=== PATIENT | female | born 1995 | race Caucasian/White ===

== ENCOUNTER 2024-08-19 09:55 | Outpatient (REF) | payer OTHER, SELFPAY ==
--- NOTE | ~2024-08-19 | US_ITS ---
EXAMINATION: US PELVIS CLINICAL INFORMATION: Irregular menses. COMPARISON: None available. TECHNIQUE: Ultrasound of the pelvis is performed using both transabdominal and transvaginal transducers along with Doppler. Transvaginal imaging is performed due to inadequate visualization transabdominally. FINDINGS: Uterus: The uterus is in anteversion flexion and measures 7 x 3 x 3 cm. Volume: 37 cc. The double wall endometrial thickness is 2 mm. The uterus is smooth in contour and has normal myometrial echogenicity. No visible fibroid. Adnexa: Both ovaries are visualized. There is normal color flow to the adnexa. There is no ovarian torsion. There is no pelvic ascites or fluid collection. Right ovary measures 3 x 2 x 2 cm. Volume: 4 cc. Left ovary measures 4 x 3 x 2 cm. Volume: 7 cc. US/US pelvic and transvaginal IMPRESSION: Normal pelvic ultrasound. Electronically signed by: Brando Titus MD 08/19/2024 01:00 PM EDT
--- OUTSIDE RECORDS SUMMARY | 2024-08-19 10:44 | XMS_ITS | Patient Health Record ---
Author Organization [facility] Address [address] [place] [address] Care Team Providers Care Histological Illustrator Name Role Phone KALI LANG Primary Care Provider Dayna Chappell Unavailable [phone] Allergies Allergen (clinical drug ingredient) Drug/Non Drug Allergy documented on EMR Reaction Allergy Type Onset Date Status amoxicillin AMOXICILLIN (uncoded) hives Allergy Active Doxycycline Calcium Unknown Drug Allergy Active Reason For Referral No Information Medications Medication SIG (Take, Route, Fr equency, Duration) Notes Start Date End Date Status Orsythia 0.1-20 MG-MCG 1 tablet Orally Once a day Active Social History Alcohol Screen (Audit-C) Question Answer Notes Did you have a drink containing alcohol in the p ast year? No Points 0 Interpretation Negative Problems Problem Type SNOMED Code ICD Code Onset Dates Problem Status W/U Status Risk Notes Problem Dysmenorrhea (731892947) Dysmenorrhea (625.3) Active confirmed Problem Excessive or frequent menstruation (626.2) Active confirmed Problem Abnormal vaginal bleeding (253256531) Other specified abnormal uterine and vaginal bleeding (N93.8) Active confirmed Plan Of Treatment Pending Test Test Name Order Date ONE SWAB 01/21/2016 ANTI-HEPATITIS C 01/21/2016 CHLAMYDIA GC AMP PROBE 09/26/2016 GC/ chl by urine aptima 07/21/2014 SYPHILIS TESTING 01/21/2016 HIV AB-AG 4TH GENERATION 01/21/2016 Insurance Providers Payer Name Payer Address Payer Phone Subscriber Number Group Number Insured Name Patient Relationship to Insured Coverage Start Date Coverage End Date [facility] [employer] [address] [place], [place] [id number] Child - Insured has Financial Responsibility Medical (General) History Medical History History ICD Code R bundle branch block Anxiety Dysmenorrhea, unspecified N94.6 Excessive and frequent menstruation with regular cycle N92.0 Dysuria R30.0 Other constipation K59.09
--- OUTSIDE RECORDS SUMMARY | 2024-08-19 10:44 | XMS_ITS | Clinical Summary ---
Author Organization [facility] Address [address] [place] [address] Care Team Providers Care Assistant Child Care Teacher Name Role Phone Unknown, Primary Care Provider Unavailabl e Social History Tobacco Use Types Packs/Day Years Used Date Smoking Tobacco: Never Assessed Sex and Gender Information Value Date Recorded Sex Assigned at Not on file Gender Identity Not on file Sexual Orientation Not on file Job Start Date Occupation Industry Not on file Not on file Not on file Plan of Treatment Health Maintenance Due Date Last Done Comments Hepatitis B Vaccines (1 of 3 - 3-dose series) 1997 Hepatitis C Screening 1997 COVID-19 Vaccine (#1) 1997 Depression Screening 2009 Preventative Health Evaluation 06/01/2015 DTap / Tdap / Td (1 - Tdap) 2016 Cervical Cancer Screening (P ap Smear) 2018 Influenza Vaccine (#1) 2024 12/27/2015 Pneumococcal Vaccine Aged Out No long er eligible based on patient's age to complete this topic RSV Ped < 20 months Aged Out No longe r eligible based on patient's age to complete this topic Care Teams Assistant Child Care Teacher Relationship Specialty Start Date End Date Unknown, PCP - General 01/09/23
--- OUTSIDE RECORDS SUMMARY | 2024-08-19 10:45 | XMS_ITS | Data Portability ---
Author Organization [place] [facility] Rod[facility]ONE [place] Address [address] [place] [address] Assessment Encounter Date Assessment Date Assessment LastModified by Organization Details LastModified Time 04/29/2024 04/29/2024 Status post acut e left knee injury. Physical examination concerning for an ACL tear, cannot exclude a medial meniscus tear. I suggest she continue with physical therapy. I recommend an MRI for further evaluation and she is in agreement. I will see her back to go over the results. In the interim she will curtail any high demand athletic activities. Questions invited and answered. Greater than 20 minutes was spent with the encounter today, including face to face time with the patient, documentation, review of records/imaging if applicable, and coordination of care. PRIOR PEDRITO: The patients history and physical examination are consistant with an acute ACL tear of the Left knee. Xrays were reviewed together on the computer. No fracture. We talked about the function of the ACL and the symptoms that occur when it is torn most notably instability. We talked about the possibility of having an increased risk of arthritis due to this instability. We talked about the treatment options including physical therapy,bracing and surgery. We discussed the role of advanced imaging. Imaging is best done when the swelling has decreased. Surgery is not urgent and best after some physical therapy and swelling has decreased. After discussion, we agreed to activity modification, brace, physical therapy and follow-up in 2 weeks. At that time an MRI can be considered based on the exam and improvement.. Not available 05/05/2024 10:46:44 05/19/2024 05/19/2024 I went over my findings with her. Unfortunately the MRI does confirm a complete rupture of her ACL which is consistent with her exam. She also has a peripheral medial meniscus tear, possibly a ramp lesion. We reviewed the natural history of ACL tears. We discussed relevant anatomy and the function of the ACL. The patient was educated that ACL tears do not heal on there own. The ACL is important for knee stability, primarily for cutting pivoting and agility activities. We discussed that recurrent instability episodes may preclude a return to athletic activities, and more importantly, place the knee at risk for additional and future injuries to the articular cartilage, menisci, and other structures. We reviewed treatment options. This included a ruchi discussion regarding non-operative treatment with activity modification, therapy, HEP, and possible brace wear. We also discussed surgical intervention - an ACL reconstruction. We reviewed the nature of the surgery as well as the anticipated recovery time. We discussed graft choices and their implications based upon the available literature. Additional pathology present at the time of surgery would be addressed accordingly. We discussed the results and outcomes following ACL reconstruction - that 75%-80% of patients can be expected to return to their previous level of activity following surgery. There is a risk of graft failure and a 5-10% chance of residual graft laxity that may compromise function. Additional risks of surgery were reviewed. We discussed and reviewed the natural history of meniscus tears. We reviewed the function and anatomy of the meniscus. The menisci are fibrocartilaginous wedge-shaped structures that play many roles in the knee, including transmitting axial loads across the tibiofemoral articulation, increasing joint congruency, contact area and stability, decreasing contact pressures, and contributing to shock absorption, lubrication, and joint proprioception. The essential function of the meniscus in dissipating forces across the joint is enabled by a longitudinal orientation of circumferential collagen fibers which convert compressive forces to circumferential hoop stresses. (Fanny ALEXANDRE) Meniscus tears are common and may or may not be symptomatic. We discussed that clinical symptoms tend to be more important than radiographic findings. We reviewed treatment options. Many meniscus tears can be treated non-surgically and symptoms may respond to a program of activity modification, home exercise/physical therapy, oral medications, bracing, and/or injections. PRP injections may be considered. Surgical intervention with an arthroscopic partial meniscectomy vs repair is considered for persistent symptoms. The majority of meniscal tears are not repairable. It is her desire to remain active. Given this as well as the medial meniscus tear she is a candidate to consider an ACL reconstruction with medial meniscus repair. I went over the nature of the surgery with her as well as the anticipated recovery time. Unfortunately she is fairly well versed with this having undergone prior ACL reconstruction on the contralateral side. Left knee arthroscopy, ACL reconstruction with BTB autograft, medial meniscus repair (90%) vs partial medial meniscectomy. Should she wish to proceed she will be in touch with the surgical aides teacher. We will work out a mutually convenient time. In the interim she can wean to a home exercise program as her range of motion has come back nicely. Greater than 30 minutes was spent with the encounter today, including face to face time with the patient, documentation, review of records/imaging if applicable, and coordination of care. PRIOR: Status post acute left knee injury. Physical examination concerning for an ACL tear, cannot exclude a medial meniscus tear. I suggest she continue with physical therapy. I recommend an MRI for further evaluation and she is in agreement. I will see her back to go over the results. In the interim she will curtail any high demand athletic activities. PRIOR PEDRITO: The patients history and physical examination are consistant with an acute ACL tear of the Left knee. Xrays were reviewed together on the computer. No fracture. We talked about the function of the ACL and the symptoms that occur when it is torn most notably instability. We talked about the possibility of having an increased risk of arthritis due to this instability. We talked about the treatment options including physical therapy,bracing and surgery. We discussed the role of advanced imaging. Imaging is best done when the swelling has decreased. Surgery is not urgent and best after some physical therapy and swelling has decreased. After discussion, we agreed to activity modification, brace, physical therapy and follow-up in 2 weeks. At that time an MRI can be considered based on the exam and improvement.. Not available 05/19/2024 17:10:39 06/23/2024 06/23/2024 She continues to experience intermittent instability and limitations with the left knee. She would like to move forward with surgery for the left knee. PLANNED PROCEDURE : Left knee arthroscopy, ACL reconstruction with BTB autograft, medial meniscus repair (90%) vs partial medial meniscectomy. I discussed the diagnosis at length with the patient today. We went over the nature of the injury/injuries using diagrams and a model of the knee to help them understand the problem(s). Given the patients desire to continue with aggressive activities, including cutting and pivoting, I recommend ACL reconstruction. Alternatives to surgery, such as activity modification, were presented and discussed. Graft options were discussed, including both autograft and allograft tissues. We further discussed graft choices such as hamstring and ygty-wehlbpeb-meto grafts from the ipsilateral knee. I described my preference for autograft tissues and the patient was given information on all graft options. As a result of this discussion the patient has chosen to use autograft patellar tendon for their surgery. They understand that if their tissue proves insufficient for any reason, an allograft for reconstruction/augme ntation may be necessary and they have provided consent for that today I marked the patient s knee with the proposed incisions. We discussed the possibility of hypertrophic scar formation. We discussed that there may be bandar-incisional paresthesia which may be permanent. We discussed that occasionally hardware used for graft fixation can be prominent on the front of the knee and require removal at a later time. I described other potential abnormalities within the knee that could be discovered at the time of surgery, such as meniscus tears, articular cartilage injury, or collateral ligament injury. The patient has given consent to treat these additional problems at the time of surgery as is appropriate. We discussed the implications of these treatments, in particular meniscus repair and microfracture, as the normal rehabilitation course following surgery may be altered. We discussed the possibility of an inside out meniscal repair. Results of ACL reconstruction were discussed. There is a recurrent injury rate of 2 to 5%. Up to 10% of reconstructions may have residual laxity that may or may not impact function. With acute ACL injuries,70-80% of patients generally return to their previous level of function. With chronic ACL injuries, the return to activity is lower, reaching only 50-60% of normal. Informed consent was obtained today. The patient clearly understands the information presented and is capable of making decisions voluntarily. They demonstrated a clear understanding of the problem and the risks and benefits of treatment. The discussion included a description of the proposed treatment, including the purpose, duration, methods and implements used, as well as the probability of success. We discussed all material risks of the procedure, as well as the possibility of unforeseen or unanticipated risks. The material risks include, but are not limited to infection, bleeding, injury to blood vessels and/or nerves, scarring, stiffness, no change in symptoms, need for further surgery, blood clots, stroke, and . The discussion further included reasonable alternatives and the risks of not being treated. Post-op pain medications were reviewed, side effects discussed. Icing protocol reviewed. Physical therapy to start per protocol. Post-op appointment confirmed. Patient was prescribed a T- scope for the above diagnosis. The patient is ambulatory but has weakness and/or instability of their left knee which requires stabilization from this semi-rigid / rigid orthosis to improve their function. I have recommended the patient use a cold/compression unit post-operatively to reduce swelling, improve pain, and reduce the use of oral narcotic pain medications. The patient has been instructed on the use of the machine. The cuff will always be applied with the skin protected. PRIOR: I went over my findings with her. Unfortunately the MRI does confirm a complete rupture of her ACL which is consistent with her exam. She also has a peripheral medial meniscus tear, possibly a ramp lesion. It is her desire to remain active. Given this as well as the medial meniscus tear she is a candidate to consider an ACL reconstruction with medial meniscus repair. I went over the nature of the surgery with her as well as the anticipated recovery time. Unfortunately she is fairly well versed with this having undergone prior ACL reconstruction on the contralateral side. Left knee arthroscopy, ACL reconstruction with BTB autograft, medial meniscus repair (90%) vs partial medial meniscectomy. Should she wish to proceed she will be in touch with the surgical aides teacher. We will work out a mutually convenient time. In the interim she can wean to a home exercise program as her range of motion has come back nicely. PRIOR: Status post acute left knee injury. Physical examination concerning for an ACL tear, cannot exclude a medial meniscus tear. I suggest she continue with physical therapy. I recommend an MRI for further evaluation and she is in agreement. I will see her back to go over the results. In the interim she will curtail any high demand athletic activities. PRIOR PEDRITO: The patients history and physical examination are consistant with an acute ACL tear of the Left knee. Xrays were reviewed together on the computer. No fracture. We talked about the function of the ACL and the symptoms that occur when it is torn most notably instability. We talked about the possibility of having an increased risk of arthritis due to this instability. We talked about the treatment options including physical therapy,bracing and surgery. We discussed the role of advanced imaging. Imaging is best done when the swelling has decreased. Surgery is not urgent and best after some physical therapy and swelling has decreased. After discussion, we agreed to activity modification, brace, physical therapy and follow-up in 2 weeks. At that time an MRI can be considered based on the exam and improvement.. Not available 06/23/2024 16:48:29 07/11/2024 07/11/2024 I reviewed my findings with the patient today. We reviewed the operative findings. Questions were invited and answered. Overall she is doing very well. Her swelling is minimal. She will continue therapy on the outlined protocol. We reviewed the meniscus repair precautions. We will plan on having her be 25 to 50% partial weightbearing for 4-6 weeks before she weans out of the brace and discontinues use of crutches. First 4 weeks she will limit flexion to no more than 90 degrees. Routine incision care reviewed. Medications reviewed. Side effects discussed. Precautions reviewed. DME adjusted as appropriate. Her T scope brace was noted to be well-fitting. ACL + Meniscus Recovery outline: Start PT 5-7 days after surgery. Cruthces with brace locked in extension for ambulation for four weeks, 25%-50% WB . May use a knee sleeve thereafter. Icing per protocol. 15-20 minutes on affected area with skin protected. May repeat hourly as needed. Alternatively may use cryomachine with skin precautions. Keep incisions dry until sutures removed. No swimming or submerging incisions for three weeks after surgery. Encourage extension exercises. Goal to regain full ROM by 6 weeks. Recommend functional rehabilitation with an ATC or the like around 5 months post-op. General return to unrestricted sporting activities is 9-12 months following surgery but could be longer if functional goals are not met. Rehab from ACL surgery is a team effort and requires active participation by the patient/family. This includes a commitment to attend scheduled therapy sessions and comply with post-operative treatment recommendations. Failure to adhere to the rehab protocol may compromise the patient s outcome. The patient/family understands there may be a financial commitment above and beyond what standard insurance may pay for with regards to rehabilitation, especially when the goal is to return to high level sporting activities. Not available 07/14/2024 08:24:24 07/31/2024 07/31/2024 She's making fei jaqueline progress. We reviewed the postoperative protocol. She can begin to progress weight-bearing as tolerated. She will continue PT along the protocol. Follow up in four weeks. PRIOR SAB: I reviewed my findings with the patient today. We reviewed the operative findings. Questions were invited and answered. Overall she is doing very well. Her swelling is minimal. She will continue therapy on the outlined protocol. We reviewed the meniscus repair precautions. We will plan on having her be 25 to 50% partial weightbearing for 4-6 weeks before she weans out of the brace and discontinues use of crutches. First 4 weeks she will limit flexion to no more than 90 degrees. Routine incision care reviewed. Medications reviewed. Side effects discussed. Precautions reviewed. DME adjusted as appropriate. Her T scope brace was noted to be well-fitting. ACL + Meniscus Recovery outline: Start PT 5-7 days after surgery. Cruthces with brace locked in extension for ambulation for four weeks, 25%-50% WB then progress to full weightbearing until 6 weeks. May use a knee sleeve thereafter. Icing per protocol. 15-20 minutes on affected area with skin protected. May repeat hourly as needed. Alternatively may use cryomachine with skin precautions. Keep incisions dry until sutures removed. No swimming or submerging incisions for three weeks after surgery. Encourage extension exercises. Goal to regain full ROM by 6 weeks. Recommend functional rehabilitation with an ATC or the like around 5 months post-op. General return to unrestricted sporting activities is 9-12 months following surgery but could be longer if functional goals are not met. Not available 08/05/2024 22:02:47 Plan of Treatment Reminders Order Date Submit Date Provider Last Modified By Organization Details Last Modified Time Details Appointments POST-OP 2024 02:45P Patty Huston MD Not available Not available Not available Lab None recorded. Referral None recorded. Procedures None recorded. Surgeries knee arthrosco py (SURG) 2024 025 ROLA Not available 07/02/2024 15:39:04 Imaging XR, knee, 1 or 2 view 2024 025 [email or web address] [facility], [address], [place], [address], 07/11/2024 16:56:44 MRI, knee, w/o contrast 2024 025 ROLA Not available 05/06/2024 10:33:49 Medication Orders None recorded. Patient TargetsNo targets recorded. Patient Instructions Encounter Date Encounter Id Patient Instructions Last Modified By Organization Details Last Modified Time 04/29/2024 [id number] Radiographs: 3 views of the Left knee were obtained in the [place] office on 04/14/2024 including AP, lateral (weightbearing), and sunrise. X-rays demonstrated normal bony mineralization. Joint spaces well-maintained. No evidence of fracture. Findings: No fracture X-ray interpretation by: JOSE JUAN Moss Not available 04/28/2024 12:54:25 05/19/2024 [id number] Radiographs: 3 views of the Left knee were obtained in the [place] office on 04/14/2024 including AP, lateral (weightbearing), and sunrise. X-rays demonstrated normal bony mineralization. Joint spaces well-maintained. No evidence of fracture. Findings: No fracture X-ray interpretation by: JOSE JUAN Moss Not available 05/19/2024 08:13:04 06/23/2024 [id number] Radiographs: 3 views of the Left knee were obtained in the [place] office on 04/14/2024 including AP, lateral (weightbearing), and sunrise. X-rays demonstrated normal bony mineralization. Joint spaces well-maintained. No evidence of fracture. Findings: No fracture X-ray interpretation by: JOSE JUAN Moss Not available 06/23/2024 08:28:21 07/11/2024 [id number] [facility] Physical Therapy Script ACL & Meniscus Repair morgan Not available 07/11/2024 15:47:21 2 views of the left knee were obtained on 07/11/2024 in the [place] office. Joint space well-maintained. Evidence of ACL reconstruction, tunnel position appears appropriate. Hardware appears intact. No acute fracture appreciated. Findings: Findings consistent with recent ACL reconstruction, no acute complication appreciated. Interpreted by: MD morgan Sykes Not available 07/14/2024 08:23:22 07/31/2024 [id number] 2 views of the left knee were obtained on 07/11/2024 in the [place] office. Joint space well-maintained. Evidence of ACL reconstruction, tunnel position appears appropriate. Hardware appears intact. No acute fracture appreciated. Findings: Findings consistent with recent ACL reconstruction, no acute complication appreciated. Interpreted by: Torsten Huston MD Not available 08/05/2024 21:58:10 Reason for Referral None Reported. Results Created Date Observation Date Name Description Value Unit Range Abnormal Flag Note LastModifiedBy Organization Detail LastModifiedTime 05/07/19 25 05/06/2024 MRI, knee, w/o contr ast No observ ation record ed. [email or web address] [facility] [address], [place], [address], 05/06/2024 10:38:26 Result Notes None recorded. Problems Name Problem SNOMED Code Status Onset Date Resolution Date Notes Provider Name and Address Organization Details Recorded Time Pain of right knee joint 494677698433986 Active 2022 FATMATA SALMERON PA-C [address], [place], [address], [place] [facility] 3 13:12:18 Rupture of anterior cruciate ligament 236403429 Active [address], [place], [address], [place] [facility], [facility] 3 11:37:21 Acute tear of lateral meniscus of right knee 183200197291422 00 Active [address], [place], [address], [place] [facility], [facility] 3 11:40:39 Tear of medial meniscus of knee 807854218 Active 2023 JOSIE BHANDARI PA-C [address], [place], [address], [place] [facility], [facility] 4 10:22:02 Rupture of anterior cruciate ligament of left knee 708259429825606 06 Active 2024 Torsten Huston MD [address], [place], [address], [place] [facility], [facility] 5 08:28:19 Pain of left knee region 471341034331120 Active 2024 Torsten Huston MD [address], [place], [address], [place] [facility], P 5 12:54:24 Tear of medial meniscus of knee 317548181 Active 2024 Torsten Huston MD [address], [place], [address], [place] - [facility], P 5 15:24:20 Problem Notes None recorded. Procedures Surgical History Date Name Laterality Status Provider Name and Address Organization Details Recorded Time 07/03/19 25 KNEE ARTHROSCOPY (SURG) completed Yesenia Adler [facility], P 07/02/2024 15:39:09 Knee Surgery completed Sammie Hammond [facility], P 04/14/2024 15:31:36 Imaging Results None recorded. Procedure Notes None recorded. Medical Equipment None Reported. Allergies Allergen ID Allergen Name Allergen Category Reaction Reaction Severity Criticality Documentation Date Start Date Code Code System Note Provider Name and Address Organization Details Recorded Time 31761 doxycycli ne Not available Not available Not available Not available 01/22/2023 3640 RxNorm Nerissa Kyle [facility], [facility], P 3 11:16:26 68468 Product containin g penicilli n (product) medicatio n Not available Not available Not available 06/23/2024 69126 8001 SNOMED Sammie Deshpande i [facility], P 5 15:07:56 Medications Name Sig Start Date Stop Date Status Note LastModified by Organization Details LastModified Time paroxetine 10 mg tablet TAKE 1 TABLET BY MOUTH EVERY DAY 01/22 completed Not Available Not Available Not Available azithromyci n 250 mg tablet TAKE 2 TABLETS BY MOUTH TODAY, THEN TAKE 1 TABLET DAILY FOR 4 DAYS 01/22 completed Not Available Not Available Not Available Lidocaine Viscous 2 % mucosal solution GARGLE AND SPIT 10-15 MILLILITE RS EVERY 3-4 HOUR NEEDED FOR THROAT PAIN *MAX 8 DOSES PER DAY* 01/22 completed Not Available Not Available Not Available fluconazole 150 mg tablet TAKE 1 TABLET BY MOUTH EVERY 3 DAYS 04/29 completed Not Available Not Available Not Available meloxicam 15 mg tablet TAKE 1 TABLET EVERY DAY IN THE MORNING FOR 7 DAYS, START THE DAY AFTER SURGERY 07/31 completed Not Available Not Available Not Available ondansetron HCl 4 mg tablet TAKE 1 TABLET EVERY 8 HOURS NEEDED, USE NEEDED AFTER SURGERY 04/29 completed Not Available Not Available Not Available aspirin 81 mg tablet,tiffanie yed release TAKE 1 TABLET BY MOUTH EVERY 12 HOURS WITH MEALS FOR 21 DAYS. START DAY AFTER SURGERY active Not Available Not Available No t Available cephalexin 500 mg capsule TAKE 1 CAPSULE EVERY 6 HOURS, START EVENING OF SURGICAL PROCEDURE . DO NOT TAKE PRIOR TO SURGERY. 07/31 completed Not Available Not Available Not Available polymyxin B sulfate 10,000 unit-trimet hoprim 1 mg/mL eye drops PUT 1 DROP INTO LEFT EYE EVERY 4 HOURS FOR 7 DAYS (MAX 6 DOSES/DAY ) 01/22 completed Not Available Not Available Not Available gabapentin 300 mg capsule TAKE 1 CAPSULE EVERY DAY IN THE EVENING FOR 3 DAYS, START EVENING PRIOR TO SURGERY 04/29 completed Not Available Not Available Not Available etodolac 400 mg tablet TAKE 1 TABLET BY MOUTH TWICE A DAY 04/29 completed Not Available Not Available Not Available hydroxyzine HCl 25 mg tablet TAKE 1 TABLET BY MOUTH FOUR TIMES A DAY NEEDED FOR ANXIETY 01/22 completed Not Available Not Available Not Available ondansetron 4 mg disintegrat ing tablet DISSOLVE 1 TABLET TWICE A DAY BY TRANSLING UAL ROUTE NEEDED, FOR NAUSEA. 07/31 completed Not Available Not Available Not Available oxycodone 5 mg tablet TAKE 1 TABLET BY MOUTH EVERY 6-8 HOURS NEEDED, DO NOT START UNTIL AFTER SURGERY 07/31 completed Not Available Not Available Not Available neomycin-po lymyxin-hyd rocort 3.5 mg-10,000 unit/mL-1 % ear drops,susp ADMINISTE R 4 DROPS INTO BOTH EARS 4 TIMES A DAY FOR 10 DAYS. 01/22 completed Not Available Not Available Not Available azithromyci n 500 mg tablet TAKE 1 TABLET BY MOUTH EVERY DAY FOR 3 DAYS 06/23 completed Not Available Not Available Not Available bupropion HCl XL 300 mg 24 hr tablet, extended release TAKE 1 TABLET BY MOUTH EVERY DAY active Not Available Not Available No t Available bupropion HCl XL 150 mg 24 hr tablet, extended release 1 TABLET BY MOUTH EVERY 24 HOURS,X90 DAYS 01/22 completed Not Available Not Available Not Available Sronyx 0.1 mg-20 mcg tablet TAKE 1 TABLET BY MOUTH EVERY DAY active Not Available Not Available No t Available FC2 Female Condom 01/22 completed Not Available Not Available Not Available Vitals Date Recorded Body height Body mass index (BMI) Body weight Provider Name and Address Organization Details Last Updated DateTime 04/29/2024 170.18 cm 21 kg/m2 42376.38 g Crystal Quach [place] [facility] 04/29/2024 13:05:53 Date Recorded Body height Body mass index (BMI) Body weight Provider Name and Address Organization Details Last Updated DateTime 05/19/2024 170.18 cm 21.1 kg/m2 22426.97 g Meg Quach [place] [facility] 05/19/2024 15:10:26 Date Recorded Body height Body mass index (BMI) Body weight Provider Name and Address Organization Details Last Updated DateTime 06/23/2024 170.18 cm 21.9 kg/m2 95155.93 g Sammie Hammond [place] [facility] 06/23/2024 15:08:08 Date Recorded Body height Body mass index (BMI) Body weight Provider Name and Address Organization Details Last Updated DateTime 07/31/2024 170.18 cm 21.9 kg/m2 78553.93 g Halie Albarado [facility] 07/31/2024 14:43:24 Social History None recorded. Functional Status Question Answer Note LastModified by Organizat ion Details LastModified Time Do you use any illicit or recreational drugs? No Information not available 01/22/2023 Do you or have you ever used any other forms of tobacco or nicotine? No Information not available 01/22/2023 What is your level of alcohol consumption? None Information not available 01/22/2023 Mental Status None recorded. Family History Nothing Reported. Medical History No medical history recorded. Gynecological HistoryNo gynecological history recorded. Obstetrics History GPAL:G 0 P 0 0 0 0 Past Encounters Encounter ID Performer Location Encounter Start Date Encounter Closed Date Diagnosis/Indication Diagnosis SNOMED-CT Code Diagnosis ICD10 Code Diagnosis Note [id number] FATMATA SALMERON PA-C [facility] [address] [place] [address] 01/04/2023 13:41:47 01/04/2023 14:38:30 Pain of right knee joint 3638453539 12574 M25.561 [id number] Torsten Huston MD [address] [address] 01/22/2023 11:06:42 01/22/2023 11:36:55 Pain of right knee joint 5970408140 67260 M25.561 Tear of me dial meniscus of knee 566936379 S83.241A Rupture of anterior cruciate ligament 091860158 S83.511A Acute tear of lateral meniscus of right knee 5859708182 1716300 S83.281A [id number] JOSIE BHANDARI PA-C [facility] [address] [address] 03/21/2023 09:26:41 03/21/2023 10:18:14 Pain of right knee joint 2789513202 56823 M25.561 Acute tear of lateral meniscus of right knee 3227180095 1499984 S83.281A Rupture of anterior cruciate ligament 887161056 S83.511A Tear of me dial meniscus of knee 369426885 S83.241A [id number] Torsten Huston MD [address] [address] 03/26/2023 14:15:45 03/26/2023 14:53:22 Pain of right knee joint 1126271689 18597 M25.561 Tear of me dial meniscus of knee 145100496 S83.241A Rupture of anterior cruciate ligament 843515117 S83.511A Acute tear of lateral meniscus of right knee 0072898811 9382113 S83.281A [id number] FATMATA SALMERON PA-C [address] [address] 04/05/2023 14:39:01 04/05/2023 15:15:36 Postoperative visit 108443286 Z48.89 History of reconstruction of anterior cruciate ligament tear 259497122 Z98.890 [id number] Torsten Huston MD [address] [address] 04/30/2023 14:26:02 04/30/2023 15:05:20 Postoperative visit 922697756 Z48.89 History of reconstruction of anterior cruciate ligament tear 821178770 Z98.890 DOS 03/28/23: Right knee arthroscop y, ACL reconstruc tion with BTB autograft, partial medial meniscecto my, [place]cecto my [id number] FATMATA SALMERON PA-C [address] [address] 05/24/2023 15:00:39 05/24/2023 15:21:19 Postoperative visit 832886443 Z48.89 History of reconstruction of anterior cruciate ligament tear 736449060 Z98.890 DOS 03/28/23: Right knee arthroscop y, ACL reconstruc tion with BTB autograft, partial medial meniscecto my, partial lateral meniscecto my [id number] JOSIE BHANDARI PA-C [facility] [address] [place] [address] 04/14/2024 15:14:38 04/14/2024 16:06:01 Pain of left knee region 6909637079 17681 M25.562 Rupture of anterior cruciate ligament of left knee 3520866712 2829741 S83.512A [id number] Torsten Huston MD [address] [address] 04/29/2024 13:00:07 04/29/2024 13:44:19 Pain of left knee region 7266863122 19744 M25.562 [id number] MD SHARDA Sykes[address] [address] 05/19/2024 14:58:52 05/19/2024 15:31:10 Rupture of anterior cruciate ligament of left knee 6654945264 8156498 S83.512D Pain of le ft knee region 0593600215 00820 M25.562 Tear of me dial meniscus of knee 389702169 S83.222A [id number] MD FESTUS Sykes [address] [address] 06/23/2024 15:02:56 06/23/2024 15:32:46 Rupture of anterior cruciate ligament of left knee 9364180383 5234358 S83.512D Tear of me dial meniscus of knee 728013308 S83.222D [id number] MD FESTUS Sykes [address] [place] [address] [place] [address] 07/11/2024 15:27:19 07/11/2024 16:01:36 Postoperative visit 130892099 Z48.89 History of reconstruction of anterior cruciate ligament tear 154205493 Z98.890 DOS 07/02/24: LEFT knee arthroscop y, ACL reconstruc tion with BTB autograft, medial meniscus RAMP repair DOS 03/28/23: RIGHT knee arthroscop y, ACL reconstruc tion with BTB autograft, partial medial meniscecto my, partial lateral meniscecto my Rupture of anterior cruciate ligament of left knee 9597149263 8026865 S83.512A S83.512D [id number] JOSE JUAN PADRON [address] [address] 07/31/2024 14:35:16 07/31/2024 14:55:18 Postoperative visit 177816427 Z48.89 History of reconstruction of anterior cruciate ligament tear 123721544 Z98.890 DOS 07/02/24: LEFT knee arthroscop y, ACL reconstruc tion with BTB autograft, medial meniscus RAMP repair DOS 03/28/23: RIGHT knee arthroscop y, ACL reconstruc tion with BTB autograft, partial medial meniscecto my, partial lateral meniscecto my Rupture of anterior cruciate ligament of left knee 7468186564 3418522 S83.512A S83.512D Health Concerns Section Related Observation LastModified by Organization Detai ls LastModified Time None Recorded Concern Status LastModified by Organization Details LastModified Time None Recorded Advance Directives Directive None Recorded Payers Insurance Date Sequence Insurance Name Policy Number Policy Mckinney Covered Member ID Mckinney Member ID Guarantor Name 08/01/2024 2 [employer] - [employer] (PPO) [facility] [id number] [facility] 04/14/2024 1 [facility] - CIGNA (PPO) [facility] [id number] [facility] 08/07/2024 1 [facility] - CIGNA (PPO) [facility] [id number] [facility] 04/14/2024 1 [employer] (PPO) [id number] 01 [facility] [id number] [facility] Notes Date Note Type Note Provider Name and Address Organization Details Recorded Time 04/29/2024 text/html Patient returns for reevaluation of her left knee. Her symptoms do seem to be improving with less swelling and better range of motion. She has not push things with regards to activity. She is currently in physical therapy. She has not had an MRI. She tells me her right knee is doing well. PRIOR PEDRITO:Patient is a pleasant 28-year-old female who presents today with left knee pain. Unfortunately she was at a trampoline park when somebody took her out. She was not using a trampoline at the time of the injury. She had pain and swelling in her knee. She presents today for orthopedic urgent care evaluation. She is able to walk, but feels somewhat unstable at times. No numbness or tingling.She is a student at [employer].Past medical history of an ACL and meniscal repair by Dr. Hutson in March 2023. Torsten Huston MD [address], [place], [address], [place] - [facility] 05/05/2024 10:46:54 05/19/2024 text/html Patient returns for reevaluation of her left knee. She reports that she has been in therapy once or twice a week and that is going well. The knee is actually feeling fairly good. She denies swelling. She does use a hinged knee brace. She denies radiating pain to the hip or ankle. She had her MRI done and brings that in today for review. PRIOR:Patient returns for reevaluation of her left knee. Her symptoms do seem to be improving with less swelling and better range of motion. She has not push things with regards to activity. She is currently in physical therapy. She has not had an MRI. She tells me her right knee is doing well. PRIOR PEDRITO:Patient is a pleasant 28-year-old female who presents today with left knee pain. Unfortunately she was at a trampoline park when somebody took her out. She was not using a trampoline at the time of the injury. She had pain and swelling in her knee. She presents today for orthopedic urgent care evaluation. She is able to walk, but feels somewhat unstable at times. No numbness or tingling.She is a student at [employer].Past medical history of an ACL and meniscal repair by Dr. Huston in March 2023. Torsten Huston MD [address], [place], [address], [place] - [facility] 05/19/2024 17:11:32 06/23/2024 text/html Patient returns for reevaluation of her left knee. She stopped therapy a couple weeks ago and continues a home exercise program. She notes occasional instability in the knee. No new injuries. She reports allergies to doxycycline and penicillin. Her penicillin allergy is hives. She denies a history of blood clots or DVT. Denies a history of clotting disorders. Denies a history of adverse reactions to anesthesia or history of malignant hyperthermia. PRIOR:Patient returns for reevaluation of her left knee. She reports that she has been in therapy once or twice a week and that is going well. The knee is actually feeling fairly good. She denies swelling. She does use a hinged knee brace. She denies radiating pain to the hip or ankle. She had her MRI done and brings that in today for review.PRIOR:Patient returns for reevaluation of her left knee. Her symptoms do seem to be improving with less swelling and better range of motion. She has not push things with regards to activity. She is currently in physical therapy. She has not had an MRI. She tells me her right knee is doing well.PRIOR PEDRITO:Patient is a pleasant 28-year-old female who presents today with left knee pain. Unfortunately she was at a trampoline park when somebody took her out. She was not using a trampoline at the time of the injury. She had pain and swelling in her knee. She presents today for orthopedic urgent care evaluation. She is able to walk, but feels somewhat unstable at times. No numbness or tingling.She is a student at [employer].Past medical history of an ACL and meniscal repair by Dr. Huston in March 2023. Torsten Huston MD [address], [place], [address], [facility] - [facility] 06/23/2024 16:52:36 07/11/2024 text/html DOS 07/02/24: Le ft knee arthroscopy, ACL reconstruction with BTB autograft, medial meniscus RAMP repairPatient presents for their first post op visit. Patient is now 9 days following surgery. She reports she is doing overall very well. Pain at this point is minimal. She is taking occasional Tylenol and still the aspirin. Pain is variable ranging between a 3 to an 8 on a 10 point scale. She reports that her swelling has come down nicely. She reports compliance with weightbearing restrictions and use of the brace. She has started physical therapy and will be going at [facility] [facility].Patient denies fevers or chills. Denies problems with the incisions. Denies chest pain, calf pain, or shortness of breath. Torsten Huston MD [address], [place], [address], [place] - [facility] 07/14/2024 08:25:36 07/31/2024 text/html DOS 07/02/24: Le ft knee arthroscopy, ACL reconstruction with BTB autograft, medial meniscus RAMP repairPatient returns to the office today for continued postoperative management of her left knee ow 4 weeks post op. She reports minimal pain overall, a 1 or 2 on a 10 point scale. Taking Tylenol sparingly. Attending physical therapy twice weekly at [facility] [facility]. Reports she has achieved 90 of flexion. She has been compliant with her brace and crutches. Notes she is not putting much weight down on the leg. She offers no new complaints today.Patient denies fevers or chills. Denies problems with the incisions. Denies chest pain, calf pain, or shortness of breath. PRIOR:Patient presents for their first post op visit. Patient is now 9 days following surgery. She reports she is doing overall very well. Pain at this point is minimal. She is taking occasional Tylenol and still the aspirin. Pain is variable ranging between a 3 to an 8 on a 10 point scale. She reports that her swelling has come down nicely. She reports compliance with weightbearing restrictions and use of the brace. She has started physical therapy and will be going at [facility].Patient denies fevers or chills. Denies problems with the incisions. Denies chest pain, calf pain, or shortness of breath. FATMATA SALMERON PA-C [address], [place], [address], [place] - [facility] 08/05/2024 22:03:00 OBGyn Episode No OBEpisode recorded.
== END 2024-08-19 09:56 | disposition home or self-care (01) ==
LOC: HO.UMASIMG 09:55
PROVIDERS: Visit Provider Family Medicine
DX: N76.0 Acute vaginitis (principal); N92.6 Irregular menstruation, unspecified
CPT/HCPCS: 76830; 76856

== ENCOUNTER → 2024-08-19 10:00 | Outpatient (BNV) | payer OTHER, SELFPAY | PROVIDERS: Visit Provider Radiology Diagnostic Radiology | DX: N92.6 Irregular menstruation, unspecified (principal) | CPT/HCPCS: 76830; 76856 ==